=== PATIENT | female | born 1990 | race Caucasian/White ===

== ENCOUNTER 2019-12-21 13:22 | Inpatient (IN) | payer BC ==
[2019-12-21] MEDS ORDERED: LIDOCAINE 0.5% (PF) 5 MG/ML (50 ML SDV) SQ PRN (13:32)
[2019-12-21] MEDS ORDERED: METHYLERGONOVINE 0.2 MG/ML 1 ML AMP IM PRN (13:32)
[2019-12-21] MEDS ORDERED: CARBOPROST TROMETHAMINE 250 MCG/ML 1 ML AMP IM PRN (13:32)
[2019-12-21] MEDS ORDERED: OXYTOCIN 10 UNIT/ML 1 ML VIAL IM PRN (13:32)
[2019-12-21] MEDS ORDERED: TERBUTALINE 1 MG/ML VIAL SQ PRN (13:32)
[2019-12-21] MEDS ORDERED: DINOPROSTONE 10 MG INSERT.ER VAGINAL ONE (13:33)
[2019-12-21 14:40] LABS: Basophils % (A) 0 %; Eosinophils # (A) 0.1 k/uL (0-0.7); Eosinophils % (A) 1 %; HCT 37.3 % (34.0-46.0); HGB 12.6 gm/dL (11.4-16.0); Lymphocytes % (A) 23 %; MCH 32.9 pg (25.0-35.0); MCHC 33.9 g/dL (31.0-37.0); MCV 97.2 fL (80.0-100.0); Mean Platelet Volume 10.7; Monocytes # (A) 0.4 k/uL (0-1.0); Monocytes % (A) 5 %; Neutrophils % (A) 69 %; Platelet Count 275 k/uL (150-450); RBC 3.84 m/uL (3.80-5.40); RDW 12.5 % (11.5-15.5); WBC 8.6 k/uL (3.8-10.6)
--- NOTE | 2019-12-21 16:27 | P.HPOB ---
History of Present Illness H&P Date: 12/21/19 Chief Complaint: IUP at 40 and 4/sevenths weeks, oligohydramnios, postdates This is a 29-year-old 1 para 0 at 40 and 4/sevenths weeks with an estimated due date of 12/16. Patient presents to the office today for routine care. Given she is 4 days past her due date NST was performed and reactive in nature. Amniotic fluid index was performed and noted to be 5. Patient denied contractions and on physical exam in the office she was noted to be fingertip/50/high station. Patient is admitted to good movement she denies contractions vaginal bleeding or loss of fluid. Patient has been receiving care with myself since 32 weeks when she transferred from [place]. Patient has a known arcuate uterus. On blood work she has a blood type of O+, rubella status immune, RPR nonreactive, hep Reyna surface antigen negative, HIV negative group beta strep status -, 11/22/2019. Review of Systems Constitutional: Denies chills, Denies fatigue, Denies fever Ears, nose, mouth and throat: Denies headache Cardiovascular: Reports leg edema Respiratory: Denies dyspnea Gastrointestinal: Denies constipation, Denies diarrhea, Denies nausea, Denies vomiting Genitourinary: Reports Past Medical History Past Medical History: No Reported History History of Any Multi-Drug Resistant Organisms: None Reported Past Surgical History: No Surgical Hx Reported Past Anesthesia/Blood Transfusion Reactions: No Reported Reaction Past Psychological History: No Psychological Hx Reported Smoking Status: Never smoker Past Alcohol Use History: None Reported Past Drug Use History: None Reported Medications and Allergies Home Medications Medication Instructions Recorded Confirmed Type Pnv,Calcium 72/Iron/Folic Acid 1 each PO DAILY 12/21/19 12/21/19 History [ Plus Tablet] Allergies Allergy/AdvReac Type Severity Reaction Status Date / Time No Known Allergies Allergy Verified 12/21/19 13:43 Exam Osteopathic Statement: *. No significant issues noted on an osteopathic structural exam other than those noted in the History and Physical/Consult. Vital Signs Temp Pulse Resp BP Pulse Ox 12/21/19 13:39 98.0 F 84 16 123/80 100 Intake and Output 12/21/19 12/21/19 12/21/19 06:59 14:59 22:59 Other: # Voids 0 Weight 73.936 kg Targeted physical exam is performed in this date and economic consultant a well-nourished well-developed female in no acute distress, breathing is noted to be non labored, heart has regular rhythm, abdomen is gravid and appropriate for gestational age, heart tones returned be category 1 and she is not nicholas. Cervidil was placed without difficulty. Results Result Diagrams: 12/21/19 14:21 Assessment and Plan (1) Post-dates Current Visit: Yes Status: Acute Code(s): O48.0 - POST-TERM SNOMED Code(s): 30199048 (2) Oligohydramnios Current Visit: Yes Status: Acute Code(s): O41.00X0 - OLIGOHYDRAMNIOS, UNSP TRIMESTER, NOT APPLICABLE OR UNSP SNOMED Code(s): 67825538 Plan: Patient is admitted to labor and delivery for Cervidil induction of labor. Cervidil is placed but difficulty. Options for analgesia discussed with patient including Stadol/epidural. Patient does desire epidural when appropriate.
[2019-12-21] MEDS ORDERED: BUTORPHANOL 1 MG/ML 1 ML VIAL IV PRN (18:48)
[2019-12-22] MEDS ORDERED: OXYTOCIN 30 UNITS/500 ML NS 30 UNIT in SALINE 1 500ML.BAG IV SCH (05:00)
[2019-12-22] MEDS: LACTATED RINGERS 1,000 ML IV SCH ×5 (05:09→21:12)
[2019-12-22] MEDS ORDERED: ROPIVACAINE 5MG/ML 20ML VIAL ONE (11:47)
[2019-12-22] MEDS ORDERED: fentaNYL (PF) 50 MCG/ML 5 ML AMP ONE (11:47)
[2019-12-22] MEDS ORDERED: SODIUM CHLORIDE 0.9% 100 ML BAG ONE (11:47)
[2019-12-22] MEDS ORDERED: HYDROcodone/APAP 5-325MG 1 EACH TAB PO PRN (15:10)
[2019-12-22] MEDS ORDERED: WITCH HAZEL 1 EACH MED..PAD TOPICAL PRN (15:10)
[2019-12-22] MEDS ORDERED: ZOLPIDEM 5 MG TAB PO PRN (15:10)
[2019-12-22] MEDS ORDERED: HYDROCORTISONE 2.5% RECTAL CREAM 30 GM TUBE RECTAL PRN (15:10)
[2019-12-22] MEDS ORDERED: SIMETHICONE 80 MG CHEWABLE PO PRN (15:10)
[2019-12-22] MEDS ORDERED: ACETAMINOPHEN TAB 325 MG TAB PO PRN (15:10)
[2019-12-22] MEDS ORDERED: BENZOCAINE/MENTHOL SPRAY 1 GM/SPRAY AEROSOL TOPICAL PRN (15:10)
[2019-12-22] MEDS ORDERED: LANOLIN CREAM 5 GM TUBE TOPICAL PRN (15:10)
[2019-12-22] MEDS ORDERED: diphenhydrAMINE 50 MG/ML 1 ML VIAL IVP PRN ×2 (15:10)
[2019-12-22] MEDS ORDERED: diphenhydrAMINE 25 MG CAP PO PRN (15:10)
[2019-12-22] MEDS ORDERED: diphenhydrAMINE 50 MG CAP PO PRN (15:10)
--- NOTE | 2019-12-22 15:14 | P.PROBDLV ---
Vaginal Delivery Note - . Vaginal Delivery Note: This pleasant 29-year-old 1 para 0 at 40-5/7 weeks presented to labor and delivery after being seen in the office and oligohydramnios was noted. Patient was admitted to labor and delivery for Cervidil induction of labor. Patient did well overnight Cervidil was removed and she was noted to be /-2 amniotomy was performed minimal clear fluid was noted. Patient progressed through labor after Pitocin augmentation of labor was begun per hospital protocol. Patient became uncomfortable requesting epidural placement. Patient was noted to be 4 cm at the time. Patient progressed to complete began pushing and had a normal spontaneous vaginal delivery of a viable male infant with a loose body cord that was delivered through. Weight of 7 lbs. 3 oz. with a delivery time of 1441. Apgars of 8 and 9 noted at one and 5 minutes respectively. After two-minute delay the umbilical cord was doubly clamped and cut and the placenta was delivered spontaneously intact with a three-vessel cord being noted. On inspection of the patient's vaginal vault a second-degree midline laceration was noted and this was repaired in the usual fashion with 3-0 Rapide. A loose piece of the anterior vaginal wall tissue was noted most likely a vaginal septum this was noted to have a small amount of bleeding on the edge therefore silver nitrate was used to obtain hemostasis. Patient tolerated repair well. The uterus is noted to be firm and below the umbilicus, estimated blood loss 300 mL Patient and infant tolerated delivery well and are resting comfortably All counts were noted to be correct 2
[2019-12-22] MEDS ORDERED: OXYTOCIN 20 UNITS/1000 ML NS 1,000 ML IV SCH (15:15)
[2019-12-22] MEDS: SENNOSIDES-DOCUSATE SODIUM 1 EACH TAB PO SCH (20:31)
[2019-12-23] MEDS: IBUPROFEN 600 MG TAB PO PRN ×2 (03:38→20:34)
[2019-12-23 05:40] LABS: Basophils % (A) 0 %; Eosinophils # (A) 0.1 k/uL (0-0.7); Eosinophils % (A) 1 %; HCT 31.8 % (34.0-46.0); HGB 10.8 gm/dL (11.4-16.0); Lymphocytes # (A) 1.9 k/uL (1.0-4.8); Lymphocytes % (A) 12 %; MCH 33.2 pg (25.0-35.0); MCHC 34.1 g/dL (31.0-37.0); MCV 97.4 fL (80.0-100.0); Mean Platelet Volume 10.5; Monocytes # (A) 0.7 k/uL (0-1.0); Monocytes % (A) 5 %; Neutrophils # (A) 12.8 k/uL (1.3-7.7); Neutrophils % (A) 81 %; Platelet Count 222 k/uL (150-450); RBC 3.27 m/uL (3.80-5.40); RDW 12.8 % (11.5-15.5); WBC 15.8 k/uL (3.8-10.6)
--- NOTE | 2019-12-23 07:41 | P.DS ---
Providers Date of admission: 12/21/19 13:22 Expected date of discharge: 12/23/19 Attending physician: Binta Becker Primary care physician: Stated None - Discharge Diagnosis(es) (1) Post-dates Current Visit: Yes Status: Acute (2) Oligohydramnios Current Visit: Yes Status: Acute (3) Status post normal vaginal delivery Current Visit: Yes Status: Acute (4) Second degree perineal laceration Current Visit: Yes Status: Acute Hospital Course: This is a 22-year-old 1 para 0 at 40-4/7 weeks presented to labor and delivery after being diagnosed with oligohydramnios. Patient was noted to have an LYN of 5. Patient had a reactive NST in the office. Patient's cervix was noted to be fingertip/50/-3 station. Patient was admitted and Cervidil induction of labor was begun. Of note this patient was a transfer of care to myself at 32 weeks that she been had been receiving routine care in [place]. care been essentially uncomplicated with the given exception of an arcuate shaped uterus. Patient did well overnight and in the morning after Cervidil is removed was noted to be 1/80/-2 amniotomy was performed and clear fluid was obtained was minimal in nature though. Patient was started on Pitocin for induction of labor per hospital protocol. Patient progressed through labor eventually becoming uncomfortable and requesting epidural placement. Epidural was placed without difficulty and soon afterwards patient was noted to be 8 cm. Patient progressed to complete began pushing and had a normal spontaneous vaginal delivery of a viable male infant weighing 7 lbs. 3 oz. at 1441, Apgars of 8 and 9 at one and 5 minutes respectively. She did sustain a second-degree midline laceration which was repaired in the usual fashion. In addition a vaginal septum was noted to have been lacerated during the delivery, it was inspected and found to be hemostatic. Patient's course has been essentially uneventful, on this day #1 she is ambulating and voiding without difficulty she stated her pain is well-controlled with ibuprofen she is breast-feeding with some difficulty. Her lochia is minimal and she would like discharge home at 24 hours. Patient Condition at Discharge: Good Plan - Discharge Summary New Discharge Prescriptions: No Action Pnv,Calcium 72/Iron/Folic Acid [ Plus Tablet] 1 each PO DAILY Discharge Medication List Pnv,Calcium 72/Iron/Folic Acid [ Plus Tablet] 1 each PO DAILY 12/21/19 [History] Patient Instructions/Handouts: Vaginal Delivery (DC), Vaginal Delivery (GEN) Activity/Diet/Wound Care/Special Instructions: No tub baths or intercourse until 6 weeks , patient is to call with any concerns prior to her 4 week check. Discharge Disposition: HOME SELF-CARE
[2019-12-23] MEDS: SENNOSIDES-DOCUSATE SODIUM 1 EACH TAB PO SCH ×2 (07:58→23:50)
[2019-12-23 19:01] VITALS: RESP 16
[2019-12-24 07:41] VITALS: BP 130/83; PULSE 88; TEMP 98.3
== END 2019-12-24 15:05 | disposition home or self-care (01) | DRG 807 ==
LOC: 4FBP 13:22
PROVIDERS: ADMIT Obstetrics & Gynecology Obstetrics; ATTEND Obstetrics & Gynecology Obstetrics
PROC: 10907ZC Drainage of Amniotic Fluid, Therapeutic from Products of Conception, Via Natural or Artificial Opening (ICD-10-PCS; principal; 2019-12-22)
PROC: 3E0R3BZ Introduction of Anesthetic Agent into Spinal Canal, Percutaneous Approach (ICD-10-PCS; principal; 2019-12-22)
PROC: 00HU33Z Insertion of Infusion Device into Spinal Canal, Percutaneous Approach (ICD-10-PCS; principal; 2019-12-22)
PROC: 0KQM0ZZ Repair Perineum Muscle, Open Approach (ICD-10-PCS; principal; 2019-12-22)
PROC: 10E0XZZ Delivery of Products of Conception, External Approach (ICD-10-PCS; principal; 2019-12-22)
DX: O41.03X0 Oligohydramnios, third trimester, not applicable or unspecified (principal); Z37.0 Single live birth; O48.0 Post-term pregnancy; O70.1 Second degree perineal laceration during delivery; Q51.810 Arcuate uterus; Z3A.40 40 weeks gestation of pregnancy
CPT/HCPCS: 85025; 86850; 86900; 86901